=== PATIENT | male | born 1970 | race Hispanic/Latino ===

== ENCOUNTER 2017-04-18 19:11 | Emergency (ER) | payer OTHER, SELFPAY ==
[2017-04-18 19:51] LABS: #Eosinphils 0.3 thou/uL (0.0-0.7); #Lymphocytes 1.6 thou/uL (1.20-3.40); #Monocytes 0.3 thou/uL (0.11-0.59); #Neutrophils 3.2 thou/uL (1.40-6.50); %Basophils 0.8 % (0.0-1.0); %Eosinophils 6.3 % (0.0-10.0); %Lymphocytes 28.9 % (21.0-51.0); Hematocrit 46.9 % (42.0-52.0); Mean Platelet Volume 7.6 fL (7.4-10.4); Red Blood Cell (RBC) Count 5.11 mill/uL (4.70-6.10); White Blood Cell (WBC) Count 5.4 thou/uL (4.8-10.8)
[2017-04-18 20:06] LABS: ALT (SGPT) 256 U/L (8-55); AST (SGOT) 160 U/L (5-34); Alkaline Phosphatase 88 U/L (40-150); Anion Gap 16 mmol/L (10-20); BUN (Urea Nitrogen) 19 mg/dL (8.9-20.6); Bilirubin, Total 0.4 mg/dL (0.2-1.2); Calc. Creatinine Clearance 0 mL/min (70-130); Calcium 9.6 mg/dL (7.8-10.44); Carbon Dioxide 23 mmol/L (22-29); Chloride 104 mmol/L (98-107); Estimated GFR-MDRD 57; Globulin 3.5 g/dL (2.4-3.5); Protein, Total 7.9 g/dL (6.0-8.3)
[2017-04-18 20:07] LABS: Troponin I Less than 0.010 ng/mL (< 0.028)
--- NOTE | 2017-04-18 20:22 | RAD ---
3 VIEWS LEFT SHOULDER: Date: 04/18/17 COMPARISON: None. HISTORY: Pain, trauma. FINDINGS: There is no widening of the AC or CC interspace. Clavicle appears intact. No evidence for dislocation or fracture. IMPRESSION: No acute findings. POS: [facility]
[2017-04-18] MEDS ORDERED: Ibuprofen 600 MG TAB ONE (20:30)
--- NOTE | 2017-04-18 20:31 | CT ---
NECK CT WITH IV CONTRAST: Date: 04/18/17 COMPARISON: None. HISTORY: 46-year-old male with neck pain. TECHNIQUE: Serial axial CT imaging at 2 mm intervals from the lung apices through the skull base with IV contras t. Coronal and sagittal reformatted imaging obtained. FINDINGS: The visualized paranasal sinuses and mastoid air cells are well aerated. The retroantral fat and para pharyngeal fat is clear bilaterally. The parotid and submandibular glands are unremarkable. The tonsillar pillars, epiglottis and preepiglottic fat, hyoid bone, thyroid cartilage, cricoid carti luke, and thyroid gland appear grossly unremarkable. The imaged lung apices appear unremarkable as well. The vascular structures appear patent. No lymphadenopathy is noted within the neck. No acute osseous abnormality seen. IMPRESSION: No acute findings. POS: [facility]
--- NOTE | 2017-05-01 11:39 | EKG ---
Test Reason : Blood Pressure : / mmHG Vent. Rate : 082 BPM Atrial Rate : 082 BPM P-R Int : 152 ms QRS Dur : 078 ms QT Int : 344 ms P-R-T Axes : 051 -21 002 degrees QTc Int : 401 ms Normal sinus rhythm Left axis deviation Normal ECG Confirmed by JUDITH MEDINA D.O. ([id number]), rewrite editor BHAVANI NOBLES ([id number] on 05/01/2017 11:39:49 AM Referred By: Confirmed By:JUDITH MEDINA D.O.
== END 2017-04-18 20:37 | disposition home or self-care (01) ==
LOC: SCSER 19:11
DX: S43.402A Unspecified sprain of left shoulder joint, initial encounter (principal); S19.9XXA Unspecified injury of neck, initial encounter; M10.9 Gout, unspecified; Z87.891 Personal history of nicotine dependence; Y04.0XXA Assault by unarmed brawl or fight, initial encounter
CPT/HCPCS: 70491; 80053; 82553; 84484; 85025; 93005

== ENCOUNTER 2017-11-04 08:55 | Emergency (ER) | payer OTHER, SELFPAY ==
[2017-11-04] MEDS ORDERED: Ketorolac Tromethamine 30 MG/ML VIAL ONE (09:10)
--- NOTE | 2017-11-04 10:09 | RAD ---
RIGHT FOOT THREE VIEWS: HISTORY: Right foot pain. Great toe pain. COMPARISON: None. FINDINGS: There is fragmentation of the lateral hallux sesamoid with erosions of the distal component of the se samoid, relative to the 2014 examination. This may be a fracture. The remainder of the foot is inta ct. IMPRESSION: Concern for fracture of the lateral hallux sesamoid. POS: [facility]
== END 2017-11-04 09:50 | disposition home or self-care (01) ==
LOC: SCSER 08:55
DX: S92.401A Displaced unspecified fracture of right great toe, initial encounter for closed fracture (principal); M10.9 Gout, unspecified; Z87.891 Personal history of nicotine dependence; W22.8XXA Striking against or struck by other objects, initial encounter
CPT/HCPCS: 96372; J1885

== ENCOUNTER 2017-12-01 18:49 | Emergency (ER) | payer OTHER, SELFPAY ==
--- NOTE | 2017-12-01 20:55 | RAD ---
THREE VIEWS RIGHT FOOT: 12/01/17 HISTORY: Pain. Previous fracture. COMPARISON: 11/04/17. FINDINGS: Lisfranc alignment is maintained. Mild degenerative changes involving the first metatarsophalangeal j oint space, similar to the previous exam. Stable hypertrophy of the calcaneus at the Achilles tendon insertion site. Stable chronic changes of the talonavicular articulation. Stable fragmentation of the lateral hallux sesamoid. Correlate clinically. IMPRESSION: No significant change. POS: [facility]
== END 2017-12-01 20:00 | disposition home or self-care (01) ==
LOC: SCSER 18:49
DX: S92.401A Displaced unspecified fracture of right great toe, initial encounter for closed fracture (principal); M10.9 Gout, unspecified; Z87.891 Personal history of nicotine dependence; Z79.891 Long term (current) use of opiate analgesic; X58.XXXA Exposure to other specified factors, initial encounter

== ENCOUNTER 2018-01-20 18:57 | Emergency (ER) | payer SELFPAY ==
--- NOTE | 2018-01-20 19:55 | RAD ---
THREE VIEWS OF THE RIGHT ANKLE: 01/20/18 COMPARISON: None. HISTORY: Right ankle pain and swelling for two days. FINDINGS: Three views of the right ankle shows no evidence of acute fracture or dislocation. Mild diffuse soft tissue swelling is seen. No degenerative changes are seen in the ankle. There is a osteophyte project ing off the superior aspect of the talus. IMPRESSION: No evidence of acute osseous abnormality. POS: [facility]
--- NOTE | 2018-01-20 19:56 | RAD ---
THREE VIEWS OF THE RIGHT FOOT: 01/20/18 COMPARISON: None. HISTORY: Right foot and ankle swelling for two days. Prior fracture of the great toe. FINDINGS: Three views of the right foot shows no evidence of acute fracture or dislocation. There is fragmentat ion of the lateral sesamoid of the great toe. Mild soft tissue swelling is seen. There are degenerati ve changes in the midfoot. IMPRESSION: No evidence of acute osseous abnormality. POS: [facility]
== END 2018-01-20 20:35 | disposition home or self-care (01) ==
LOC: SCSER 18:57
DX: M79.89 Other specified soft tissue disorders (principal); M79.671 Pain in right foot; M10.9 Gout, unspecified; Z87.891 Personal history of nicotine dependence; Z79.899 Other long term (current) drug therapy

== ENCOUNTER 2018-09-07 21:01 | Emergency (ER) | payer OTHER, SELFPAY | END 2018-09-07 21:47 | disposition home or self-care (01) | LOC: SCSER 21:01 | DX: G89.18 Other acute postprocedural pain (principal); M79.671 Pain in right foot; M10.9 Gout, unspecified; Z87.891 Personal history of nicotine dependence; Z79.899 Other long term (current) drug therapy; Z79.1 Long term (current) use of non-steroidal anti-inflammatories (NSAID) | CPT/HCPCS: 99283 ==

== ENCOUNTER 2018-09-19 13:22 | Emergency (ER) | payer SELFPAY ==
--- NOTE | 2018-09-19 15:24 | RAD ---
RIGHT FOOT THREE VIEWS: HISTORY: Pain, following surgery, on 09/03/2018, after walking. FINDINGS: Minimal soft tissue swelling in the region of the great toe, particularly at the metatarsophalangeal joint. No evidence for acute fracture or dislocation. IMPRESSION: Soft tissue swelling of the great toe without acute fracture or dislocation. POS: [facility]
[2018-09-19] MEDS ORDERED: Bacitracin Zinc 1 Packet ONE (15:28)
== END 2018-09-19 15:40 | disposition home or self-care (01) ==
LOC: SCSER 13:22
DX: T81.31XA Disruption of external operation (surgical) wound, not elsewhere classified, initial encounter (principal); G89.18 Other acute postprocedural pain; M10.9 Gout, unspecified; Z87.891 Personal history of nicotine dependence; Z79.1 Long term (current) use of non-steroidal anti-inflammatories (NSAID); Z79.899 Other long term (current) drug therapy

== ENCOUNTER 2019-03-03 13:27 | Emergency (ER) | payer BC | END 2019-03-03 14:52 | disposition home or self-care (01) | LOC: SCSER 13:27 | DX: K42.9 Umbilical hernia without obstruction or gangrene (principal); L03.90 Cellulitis, unspecified; M10.9 Gout, unspecified; Z87.891 Personal history of nicotine dependence | CPT/HCPCS: 99283 ==